=== PATIENT | male | born 1950 | race Caucasian/White ===

== ENCOUNTER 2016-04-28 13:43 | Emergency (ER) | payer MEDICARE, OTHER | END 2016-04-28 14:57 | disposition home or self-care (01) | LOC: ER 13:43 | DX: S39.012A Strain of muscle, fascia and tendon of lower back, initial encounter (principal); S76.011A Strain of muscle, fascia and tendon of right hip, initial encounter; X58.XXXA Exposure to other specified factors, initial encounter | CPT/HCPCS: 73502-RT ==

== ENCOUNTER 2016-07-05 06:42 | Emergency (ER) | payer MEDICARE, OTHER | END 2016-07-05 07:02 | disposition home or self-care (01) | LOC: ER 06:42 | DX: M54.16 Radiculopathy, lumbar region (principal); I10 Essential (primary) hypertension; E11.9 Type 2 diabetes mellitus without complications; E78.5 Hyperlipidemia, unspecified; F17.210 Nicotine dependence, cigarettes, uncomplicated; Z79.4 Long term (current) use of insulin ==

== ENCOUNTER 2016-08-01 12:26 | Emergency (ER) | payer MEDICARE, OTHER | END 2016-08-01 13:10 | disposition home or self-care (01) | LOC: ER 12:26 | DX: M54.41 Lumbago with sciatica, right side (principal); E11.9 Type 2 diabetes mellitus without complications; I10 Essential (primary) hypertension; G47.30 Sleep apnea, unspecified; F17.200 Nicotine dependence, unspecified, uncomplicated; Z79.4 Long term (current) use of insulin; Z79.899 Other long term (current) drug therapy ==